=== PATIENT | female | born 1960 | race Caucasian/White ===

== ENCOUNTER 2020-10-31 23:32 | Emergency (ER) | payer OTHER ==
[2020-11-01 01:51] LABS: HEMOGLOBIN 13.2 gm/dl (12.3-15.3); RED BLOOD COUNT 4.24 M/UL (4.00-5.10); WHITE BLOOD COUNT 11.3 K/UL (4.5-11.0)
[2020-11-01 03:43] LABS: BUN/CREATININE RATIO 17 (0-10)
[2020-11-01] MEDS ORDERED: ANTIVERT 12.512.5 MG PO (04:24)
[2020-11-01] MEDS ORDERED: ZOFRAN ODT 4 MG4 MG SL (04:24)
== END 2020-11-01 04:41 | disposition home or self-care (01) ==
LOC: ER1 23:32
PROVIDERS: Emergency Medicine
DX: R10.11 Right upper quadrant pain (principal); R42 Dizziness and giddiness; K21.9 Gastro-esophageal reflux disease without esophagitis; Z20.822 Contact with and (suspected) exposure to COVID-19
CPT/HCPCS: 0240U; 70450; 71045; 80053; 81001; 82550; 82553; 83605; 83690; 83735; 83874; 84484; 85025; 96374; 99284; J2405; J7040; Q9967

== ENCOUNTER → 2021-12-09 | Outpatient (CLI) | payer OTHER ==
[~2021-12-09] MED LIST: ANTIVERT 12.512.5 MG PO; ZOFRAN ODT 4 MG4 MG SL
== END ==
LOC: CT 11-15 13:30
DX: N23 Unspecified renal colic (principal); N28.1 Cyst of kidney, acquired
CPT/HCPCS: Q9967